=== PATIENT | male | born 1955 | race Caucasian/White ===

== ENCOUNTER 2019-06-15 07:08 | Day surgery (SDC) | payer MEDICARE, BC ==
[2019-06-15] VITALS (7 sets, daily range): BP systolic 120–204; BP diastolic 60–133
[~2019-06-15] VITALS: Ht 172.7 cm; Wt 120.2 kg
[~2019-06-15 07:08] MED LIST: ATEN50TA PO; DOCUMENT DATE & TIME OF BETA-BLOCKER PO ONE; ESOM40CA17 PO; HYDR-4353 PO; ceFAZolin/D5W- 1GM premix 50 ML IV ONE; cefazolin/dext.iso 2gm/100ml 100 ML IV ONE; famotidine 20mg tablet PO ONE; ringers solution, lacted 1,000 ML IV SCH
--- NOTE | 2019-06-15 08:06 | NUR ---
DR BLEVINS NOTIFIED OF HIGH BP RESULT. ORDER RECEIVED FOR ADDITIONAL DOSE OF PO ATENOLOL.
[2019-06-15] MEDS ORDERED: atenolol 50mg tablet PO ONE (08:10)
[2019-06-15] MEDS ORDERED: ringers solution, lacted 1,000 ML IV SCH (09:46)
[2019-06-15] MEDS ORDERED: acetaminophen 1,000mg/100ml IV 100 ML IV PRN (09:50)
[2019-06-15] MEDS ORDERED: meperidine/PF 25mg/ml syringe IV PRN (09:50)
[2019-06-15] MEDS ORDERED: hydrALAZINE 20mg/ml inj. IV PRN (09:50)
[2019-06-15] MEDS ORDERED: ondansetron/PF 4mg/2ml inj IV PRN (09:50)
[2019-06-15] MEDS ORDERED: HYDROmorphone inj. 0.5 MG/0.5 ML DISP.SYRIN IV PRN ×2 (09:50)
[2019-06-15] MEDS ORDERED: morphine 2 MG/ML inj. syringe IV PRN (09:50)
[2019-06-15] MEDS ORDERED: labetalol 20mg/4ml (5mg/ml) syringe IV PRN (09:50)
[2019-06-15] MEDS ORDERED: morphine 4 MG/ML inj SYRINge IV PRN (09:50)
[2019-06-15] MEDS ORDERED: proCHLORperazine 10 MG/2 ml inj IV PRN (09:50)
[2019-06-15] MEDS ORDERED: LIDOcaine 0.5% (5mg/ml) 50ml vial ONE ×2 (10:51→10:57)
[2019-06-15] MEDS ORDERED: BUPIVAcaine/PF 2.5 mg/ml (0.25%) 30ml vial ONE (10:52)
[2019-06-15] MEDS ORDERED: triamcinolone acetonide 40mg/ml inj ONE (10:52)
[2019-06-15] MEDS ORDERED: MIDAZolam 5mg/5ml vial ONE (11:32)
[2019-06-15] MEDS ORDERED: fentaNYL/PF 50MCG/1 ML 2ML syringe ONE (11:33)
[2019-06-15] MEDS ORDERED: propofol inj 20 ML IV ONE (11:39)
[2019-06-15] MEDS ORDERED: hydrALAZINE 20mg/ml inj. IV ONE (11:50)
--- NOTE | 2019-06-15 12:10 | NUR ---
Received from OR via BED, accompanied by Anesthesiologist DR BLEVINS and report given by Anesthesiolgist. PATIENT A&OX4, DENIES PAIN, V/S WNL, NEUROVASCULAR CHECKS INTACT, SCD ON, LEFT WRIST DRESSING CDI ELEVATED WITH ICE BAG APPLIED. 20G RUE.
[2019-06-15] MEDS ORDERED: HYDROcodone/acetaminophen 10/325mg tab PO ONE (12:50)
--- NOTE | 2019-06-15 13:10 | NUR ---
PATIENT A&OX4, DENIES PAIN, V/S WNL, NEUROVASCULAR CHECKS INTACT, SCD OFF, LEFT WRIST DRESSING CDI ELEVATED WITH ICE BAG APPLIED. 20G RUE D/C WITH NO COMPLICATIONS OBSERVED. I HAVE REVIEWED D/C INSTRUCTIONS WITH PATIENT AND FAMILY AND THEY HAVE VERBALIZED UNDERSTANDING. PATIENT D/C HOME WITH FAMILY TO TRANSPORT AND ALL BELONGINGS.
== END 2019-06-15 13:10 | disposition home or self-care (01) ==
LOC: PAS 07:08
PROVIDERS: ATTEND Orthopaedic Surgery
DX: G56.02 Carpal tunnel syndrome, left upper limb (principal); M75.42 Impingement syndrome of left shoulder; G47.33 Obstructive sleep apnea (adult) (pediatric); I10 Essential (primary) hypertension; E11.9 Type 2 diabetes mellitus without complications; G89.29 Other chronic pain; M19.90 Unspecified osteoarthritis, unspecified site; K21.9 Gastro-esophageal reflux disease without esophagitis; E66.9 Obesity, unspecified; Z68.41 Body mass index [BMI] 40.0-44.9, adult; Z85.01 Personal history of malignant neoplasm of esophagus; Z87.891 Personal history of nicotine dependence; Z91.041 Radiographic dye allergy status; Z88.8 Allergy status to other drugs, medicaments and biological substances; Z79.899 Other long term (current) drug therapy; Z96.653 Presence of artificial knee joint, bilateral; Z98.890 Other specified postprocedural states; Z11.59 Encounter for screening for other viral diseases
CPT/HCPCS: 20610; 36415; 64721; 82948; 87635; 93005; J0360; J0690; J2001; J2250; J2704; J3010; J3301; J3490; A4215; A4618; A6258; A6449; A7000; J7120